=== PATIENT | female | born 1995 | race Caucasian/White ===

== ENCOUNTER 2021-08-07 16:27 | Emergency (ER) | payer OTHER ==
[~2021-08-07 16:27] MED LIST: COLACE 100MG C100 MG PO
[2021-08-07 17:40] LABS: HEMOGLOBIN 15.2 gm/dl (12.3-15.3); RED BLOOD COUNT 5.1 M/UL (4.00-5.10); WHITE BLOOD COUNT 5.1 K/UL (4.5-11.0)
[2021-08-07 17:59] LABS: BUN/CREATININE RATIO 13 (0-10)
== END 2021-08-07 19:00 | disposition home or self-care (01) ==
LOC: ER1 16:27
PROVIDERS: Physician Assistant
DX: O20.0 Threatened abortion (principal); Z3A.01 Less than 8 weeks gestation of pregnancy; I10 Essential (primary) hypertension
CPT/HCPCS: 76817; 80053; 81001; 84702; 85025; 86900; 86901; 87086; 99284